=== PATIENT | female | born 2000 | race Asian ===

== ENCOUNTER 2020-07-22 20:37 | Emergency (ER) | payer OTHER ==
[~2020-07-22] VITALS: Ht 149.9 cm; Wt 45.5 kg
[2020-07-23 00:02] VITALS: BP 118/65
== END 2020-07-23 00:06 | disposition home or self-care (01) ==
LOC: EMS 20:37
DX: J02.9 Acute pharyngitis, unspecified (principal); Z20.828 Contact with and (suspected) exposure to other viral communicable diseases
CPT/HCPCS: 87426; 99283; U0003

== ENCOUNTER 2020-08-03 05:54 | Emergency (ER) | payer OTHER ==
[~2020-08-03] VITALS: Ht 152.4 cm; Wt 45.9 kg
[2020-08-03 06:06] VITALS: BP 92/53
== END 2020-08-03 09:48 | disposition home or self-care (01) ==
LOC: EMS 05:54
DX: U07.1 COVID-19 (principal); R05 Cough; R09.81 Nasal congestion
CPT/HCPCS: 99283; U0003